=== PATIENT | female | born 1995 | race Hispanic/Latino ===

== ENCOUNTER 2018-01-08 02:59 | Emergency (ER) | payer OTHER ==
[2018-01-08 03:03] VITALS: BMI 21.2
--- NOTE | 2018-01-08 03:50 | ED PDOC ---
Arrival/HPI - General Chief Complaint: Abdominal Pain Time Seen by Provider: 01/08/18 03:18 Historian: Patient - History of Present Illness Narrative History of Present Illness (Text): 01/08/18 03:44 A 22 year old female, with no significant past medical history, presents to the emergency department with complaint of 10 day duration sharp, left-sided, abdominal pain, nausea, and vomiting. She states that the pain woke her from her sleep. Patient reports that she has been having loose stools. She denies any drug use and states that she occasionally drinks alcohol. The patient denies fevers, chills, headache, dizziness, chest pain, shortness of breath, dyspnea on exertion, cough, back pain, neck pain, urinary changes, hematuria, hematemesis, hematochezia, or any other complaint. PMD: Dr. Yang Time/Duration: Other (10 days) Symptom Onset: Sudden Symptom Course: Unchanged Activities at Onset: Rest, Light Context: Home Past Medical History - Provider Review Nursing Documentation Reviewed: Yes - Infectious Disease Hx of Infectious Diseases: None - Cardiac Hx Cardiac Disorders: No - Pulmonary Hx Respiratory Disorders: No - Neurological Hx Neurological Disorder: No - HEENT Hx HEENT Disorder: No - Renal Hx Renal Disorder: No - Endocrine/Metabolic Hx Endocrine Disorders: No - Hematological/Oncological Hx Blood Disorders: No - Integumentary Hx Dermatological Disorder: No - Musculoskeletal/Rheumatological Hx Musculoskeletal Disorders: No - Gastrointestinal Hx Gastrointestinal Disorders: Yes Other/Comment: "Bladder Problems" - Psychiatric Hx Substance Use: No - Surgical History Other/Comment: Bladder Surgery - Anesthesia Hx Anesthesia: Yes Family/Social History - Physician Review Nursing Documentation Reviewed: Yes Family/Social History: No Known Family HX Smoking Status: Never Smoked Hx Alcohol Use: Yes Frequency of alcohol use: Socially Hx Substance Use: No Allergies/Home Meds Allergies/Adverse Reactions: Allergies No Known Allergies Allergy (Verified 01/08/18 03:03) Review of Systems - Physician Review All systems were reviewed & negative as marked: Yes - Review of Systems Constitutional: absent: Fevers Respiratory: absent: SOB, Cough Cardiovascular: absent: Chest Pain, FRENCH Gastrointestinal: Abdominal Pain (Left- sided abdominal pain), Stool Changes ( Loose stools), Nausea, Vomiting. absent: Hematochezia, Hematemesis Genitourinary Female: absent: Hematuria, Urine Output Changes Musculoskeletal: absent: Back Pain, Neck Pain Neurological: absent: Headache, Dizziness Physical Exam - Physical Exam Narrative Physical Exam (Text): 01/08/18 03:50 Gen: VS reviewed, alert, well developed, well nourished, nontoxic, mild distress. ENT: Normal pharynx. Eye: EOMI, PERRL. Neck: No JVD, supple, no adenopathy. CV: Regular rate, regular rhythm, no rubs, no murmur, no gallops, S1, S2, pulses equal and strong. Pulm: No distress, clear to auscultation, no wheeze, no rhonchi, breath sounds equal, no rales. Abd: Soft, nontender, no guarding, no rebound, no rigidity, normal bowel sounds. Ext: No edema. Skin: Good color, no rash, no cyanosis. Psych: Responds appropriately to questions, normal affect. Neuro: Oriented x 3, CN2-12 intact grossly, motor intact, sensation intact. Vital Signs Reviewed: Yes Vital Signs Temp Pulse Resp BP Pulse Ox 01/08/18 08:49 98.1 F 71 19 99 01/08/18 08:42 98.1 F 70 18 119/78 99 01/08/18 06:28 62 18 115/58 L 99 01/08/18 03:03 98.0 F 88 18 120/81 98 Temperature: Afebrile Blood Pressure: Normal Pulse: Regular Respiratory Rate: Normal Appearance: Positive for: Well-Appearing, Non-Toxic, Comfortable Pain Distress: None Mental Status: Positive for: Alert and Oriented X 3 Medical Decision Making ED Course and Treatment: 01/08/18 03:51 Impression: A 22 year old female presents to the emergency department with a complaint of left- sided abdominal pain, nausea, vomiting, and loose stools. Plan: -- Abdomen/Pelvis CT -- Labs -- Urine Culture -- Reassess and disposition Progress Notes: 01/09/18 01:40 case was endorsed to dr. meza, pending Ct result and final disposition. - Lab Interpretations Lab Results: 01/08/18 04:18 01/08/18 04:18 Lab Results 01/08/18 04:18: Sodium 141, Potassium 4.0, Chloride 104, Carbon Dioxide 27, Anion Gap 14, BUN 11, Creatinine 0.8, Est GFR ( Amer) > 60, Est GFR (Non- Af Amer) > 60, Random Glucose 93, Calcium 9.5, Total Bilirubin 0.4, AST 31, ALT 19, Alkaline Phosphatase 54, Total Protein 7.3, Albumin 4.3, Globulin 3.0, Albumin/Globulin Ratio 1.4 01/08/18 04:18: WBC 6.1, RBC 4.54, Hgb 11.8 L, Hct 36.3, MCV 80.0, MCH 26.0, MCHC 32.5, RDW 14.6 H, Plt Count 337, MPV 10.2, Gran % 49.3 L, Lymph % (Auto) 42.9 H, [place] % (Auto) 6.5 H, Eos % (Auto) 0.8 L, Baso % (Auto) 0.5, Gran # 3.01 , Lymph # (Auto) 2.6, [place] # (Auto) 0.4, Eos # (Auto) 0.1, Baso # (Auto) 0.03 01/08/18 03:20: Urine Color Yellow, Urine Appearance Clear, Urine pH 6.5, Ur Specific [place] 1.020, Urine Protein Negative, Urine Glucose (UA) Negative, Urine Ketones Negative, Urine Blood Negative, Urine Nitrate Negative, Urine Bilirubin Negative, Urine Urobilinogen 0.2, Ur Leukocyte Esterase Trace H, Urine RBC 0 - 2, Urine WBC 2 - 5, Ur Epithelial Cells 1 - 3, Urine Bacteria Small I have reviewed the lab results: Yes - RAD Interpretation Radiology Orders: 01/08/18 04:09 ABDOMEN & PELVIS [ABD PELVIS PO & IV CONTRAST] [CT] Stat - Scribe Statement The provider has reviewed the documentation as recorded by the Scribe Courtney Yoo Provider Scribe Attestation: All medical record entries made by the Scribe were at my direction and personally dictated by me. I have reviewed the chart and agree that the record accurately reflects my personal performance of the history, physical exam, medical decision making, and the department course for this patient. I have also personally directed, reviewed, and agree with the discharge instructions and disposition. Disposition/Present on Arrival - Present on Arrival Any Indicators Present on Arrival: No History of DVT/PE: No History of Uncontrolled Diabetes: No Urinary Catheter: No History of Decub. Ulcer: No History Surgical Site Infection Following: None - Disposition Have Diagnosis and Disposition been Completed?: Yes Diagnosis: Abdominal pain Disposition: HOME/ ROUTINE Disposition Time: 01:40 Condition: STABLE Discharge Instructions (ExitCare): Acute Abdomen (Belly Pain), Adult (DC) Print Language: UKRAINIAN Additional Instructions: Make sure to see your doctor in 1-2 days DRINK PLENTY OF FLUIDS take your medications as prescribed RETURN TO ED IF worse pain, cant breath, persistent vomiting, high fever >101- 102 for hours, altered behavior, slurr speech, facial changes, focal weakness ( arm/leg or both), unable to urinate, heavy/persistent bleeding, passing out, chest pain, or other medical emergencies Prescriptions: Ibuprofen [Motrin] 600 mg PO QID PRN #30 tab PRN Reason: Pain, Mild (1-3) Referrals: [facility] [Outside] - Follow up with primary [facility] [Outside] - Follow up with primary [facility] [Outside] - Follow up with primary Leonel Yang MD [Primary Care Provider] - Follow up with primary Forms: [employer] Jeanie (Macanese), WORK NOTE
[2018-01-08 04:22] LABS: PH,URINE 6.5 (4.7-8.0); URINE BILIRUBIN NEGATIVE (NEGATIVE); URINE BLOOD NEGATIVE (NEGATIVE); URINE GLUCOSE (UA) NEGATIVE (NEGATIVE); URINE LEUKOCYTE ESTERASE TRACE Leu/uL (NEGATIVE); URINE PROTEIN NEGATIVE mg/dL (<30 mg/dL); URINE UROBILINOGEN 0.2 E.U./dL (<1 E.U./dL)
[2018-01-08 04:30] LABS: URINE APPEARANCE CLEAR (CLEAR); URINE COLOR YELLOW (YELLOW)
[2018-01-08 04:36] LABS: URINE BACTERIA SMALL (NEG); URINE RBC 0 - 2 /hpf (0-2)
[2018-01-08] MEDS ORDERED: Iohexol 240 (50 ml) ONE (04:38)
[2018-01-08 04:52] LABS: BASO # 0.03 K/mm3 (0.0-2.0); BASO % 0.5 % (0.0-3.0); EOS # 0.1 (0.0-0.7); EOS % 0.8 % (1.5-5.0); GRAN # 3.01 (1.4-6.5); GRAN % 49.3 % (50.0-68.0); HEMOGLOBIN 11.8 g/dL (12.0-16.0); LYMPH # 2.6 (1.2-3.4); LYMPH % 42.9 % (22.0-35.0); MEAN CORPUSCULAR HGB CONC 32.5 g/dl (31.0-37.0); MEAN PLATELET VOLUME 10.2 fl (7.0-11.0); MONO # 0.4 (0.1-0.6); MONO % 6.5 % (1.0-6.0); RBC 4.54 10^6/uL (3.5-6.1); RED CELL DISTRIBUTION WIDTH 14.6 % (11.5-14.5); WHITE BLOOD COUNT 6.1 10^3/ul (4.5-11.0)
[2018-01-08 05:18] LABS: ALB/GLOB RATIO 1.4 (1.1-1.8); ALBUMIN 4.3 g/dL (3.0-4.8); ALT/SGPT 19 U/L (7-56); AST/SGOT 31 U/L (14-36); BLOOD UREA NITROGEN 11 mg/dL (7-21); CALCIUM 9.5 mg/dL (8.4-10.5); GFR AFRICAN-AMERICAN > 60; GFR NON-AFRICAN AMERICAN > 60
[2018-01-08 06:28] VITALS: O2SAT 99
[2018-01-08] MEDS ORDERED: Iohexol 350 MG/100 ML VIAL ONE (06:40)
--- NOTE | 2018-01-08 07:37 | ED PDOC ---
Physical Exam - Physical Exam Narrative Physical Exam (Text): 01/08/18 General: alert/awake, GCS = 15, oriented x 3, resting in bed, comfortable, cooperative, interactive; NAD; pt was resting/sleeping in her exam bed prior to re-eval Head: NC/AT EYE: PERRLA, EOMI, sclera anicteric, no nystagmus, no photophobia Facial: WNL Oral: uvula/tongue are midline, no exudate/lesions, no drooling/stridor, no dysphonia; intact dentitions NECK: intact ROM, no midline tenderness, no nuchal rigidity, no meningeal signs ; no step off Chest: CTA b/l, no w/r/r; no tachypenia, no accessory muscle use noted Chest Wall: no crepitus, no lesions, no gross deformities, no focal tenderness Cardiac: +S1, +S2, no m/r/r, no tachycardia Abdominal: +BS, soft/nd/nt, well nourished patient; no masses/rebound/guarding/ rigidity; no betancourt's sign, no mcburney's point tenderness Extremities: intact ROM, strength 5/5 grossly intact in all limbs, neurovasc intact b/l; + ambulatory; reflex +2/2 BACK: no step off, no midline tenderness, NO crepitus, no gross deformities noted; Intact ROM SKIN: cap refill < 1 sec, no ulcerations, no petechiae, no rashes NEURO: CNII-XII WNL, no facial asymmetries, no slurr speech, oriented x 3 NIH stroke scale ~ 0 Psych: normal insight, normal affect; follows command with ease Vital Signs Reviewed: Yes Vital Signs Temp Pulse Resp BP Pulse Ox 01/08/18 08:42 98.1 F 70 18 119/78 99 01/08/18 06:28 62 18 115/58 L 99 01/08/18 03:03 98.0 F 88 18 120/81 98 Temperature: Afebrile Blood Pressure: Normal Pulse: Regular Respiratory Rate: Normal Appearance: Positive for: Well-Appearing, Non-Toxic, Comfortable Pain Distress: None Mental Status: Positive for: Alert and Oriented X 3 - Systems Exam Head: Present: Atraumatic, Normocephalic Medical Decision Making ED Course and Treatment: 01/08/18 07:00 Case endorsed to me by Dr. Avila. Patient is a 22 year old female, with no significant past medical history, with complaint of 10 day sharp, left-sided, abdominal pain, associated with nausea, vomiting, and loose stools. Currently pending abdominal CT scan. pt can be dispositioned accordingly. 01/08/18 08:30 On reevaluation, patient has improved, little to no abd pain, and is in no acute distress. I have discussed the results and plan with the patient, who expresses understanding. Patient given the opportunity to ask question, all questions were answered and there is agreement with the plan to discharge the patient home. Patient is stable for discharge. Patient was instructed to follow up as directed. Re-evaluation Time: 08:30 Reassessment Condition: Improved - Lab Interpretations Lab Results: 01/08/18 04:18 01/08/18 04:18 Lab Results 01/08/18 04:18: Sodium 141, Potassium 4.0, Chloride 104, Carbon Dioxide 27, Anion Gap 14, BUN 11, Creatinine 0.8, Est GFR ( Amer) > 60, Est GFR (Non- Af Amer) > 60, Random Glucose 93, Calcium 9.5, Total Bilirubin 0.4, AST 31, ALT 19, Alkaline Phosphatase 54, Total Protein 7.3, Albumin 4.3, Globulin 3.0, Albumin/Globulin Ratio 1.4 01/08/18 04:18: WBC 6.1, RBC 4.54, Hgb 11.8 L, Hct 36.3, MCV 80.0, MCH 26.0, MCHC 32.5, RDW 14.6 H, Plt Count 337, MPV 10.2, Gran % 49.3 L, Lymph % (Auto) 42.9 H, [place] % (Auto) 6.5 H, Eos % (Auto) 0.8 L, Baso % (Auto) 0.5, Gran # 3.01 , Lymph # (Auto) 2.6, [place] # (Auto) 0.4, Eos # (Auto) 0.1, Baso # (Auto) 0.03 01/08/18 03:20: Urine Color Yellow, Urine Appearance Clear, Urine pH 6.5, Ur Specific [place] 1.020, Urine Protein Negative, Urine Glucose (UA) Negative, Urine Ketones Negative, Urine Blood Negative, Urine Nitrate Negative, Urine Bilirubin Negative, Urine Urobilinogen 0.2, Ur Leukocyte Esterase Trace H, Urine RBC 0 - 2, Urine WBC 2 - 5, Ur Epithelial Cells 1 - 3, Urine Bacteria Small I have reviewed the lab results: Yes Interpretation: All labs normal - RAD Interpretation Narrative RAD Interpretations (Text): 01/08/18 08:26 CT Abdomen and Pelvis With Intravenous Contrast FINDINGS: Lung bases: Unremarkable. No mass. No consolidation. ABDOMEN: Liver: Unremarkable. No mass. Gallbladder and bile ducts: Unremarkable. No calcified stones. No ductal dilation. Pancreas: Unremarkable. No mass. No ductal dilation. Spleen: Unremarkable. No splenomegaly. Adrenals: Unremarkable. No mass. Kidneys and ureters: Unremarkable. No solid mass. No hydronephrosis. Stomach and bowel: Unremarkable. No obstruction. No mucosal thickening. PELVIS: Appendix: No findings to suggest acute appendicitis. Bladder: Unremarkable. No mass. Reproductive: Unremarkable as visualized. ABDOMEN and PELVIS: Intraperitoneal space: Trace free fluid is present which is nonspecific but may reflect physiologic fluid or rupture of an ovarian cyst or follicle. No free air. Bones/joints: No acute fracture. No dislocation. Soft tissues: Unremarkable. Vasculature: Unremarkable. No abdominal aortic aneurysm. Lymph nodes: Nonspecific small mesenteric lymph nodes are noted. IMPRESSION: Trace free pelvic fluid. Radiology Orders: 01/08/18 04:09 ABDOMEN & PELVIS [ABD PELVIS PO & IV CONTRAST] [CT] Stat Finishing Supervisor: Radiologist Disposition/Present on Arrival - Present on Arrival Any Indicators Present on Arrival: No History of DVT/PE: No History of Uncontrolled Diabetes: No Urinary Catheter: No History of Decub. Ulcer: No History Surgical Site Infection Following: None - Disposition Have Diagnosis and Disposition been Completed?: Yes Diagnosis: Abdominal pain Disposition: HOME/ ROUTINE Disposition Time: 08:35 Patient Plan: Discharge Patient Problems: Current Active Problems Problem Status Onset Abdominal pain Acute Condition: STABLE Discharge Instructions (ExitCare): Acute Abdomen (Belly Pain), Adult (DC) Print Language: BENGALI Additional Instructions: Make sure to see your doctor in 1-2 days DRINK PLENTY OF FLUIDS take your medications as prescribed RETURN TO ED IF worse pain, cant breath, persistent vomiting, high fever >101- 102 for hours, altered behavior, slurr speech, facial changes, focal weakness ( arm/leg or both), unable to urinate, heavy/persistent bleeding, passing out, chest pain, or other medical emergencies Prescriptions: Ibuprofen [Motrin] 600 mg PO QID PRN #30 tab PRN Reason: Pain, Mild (1-3) Referrals: [facility] [Outside] - Follow up with primary [facility] [Outside] - Follow up with primary [facility] [Outside] - Follow up with primary Leonel Yang MD [Primary Care Provider] - Follow up with primary Forms: [employer] (Mongolian), WORK NOTE
[2018-01-08 08:43] VITALS: BP 119/78; TEMP 98.1
[2018-01-08 08:50] VITALS: PULSE 71; RESP 19
--- NOTE | 2018-01-08 09:09 | CT ---
Date of service: 01/08/2018 PROCEDURE: CT Abdomen and Pelvis with contrast HISTORY: pain, vomiting COMPARISON: None. TECHNIQUE: Contrast dose: Radiation dose: Total exam DLP = mGy-cm. This CT exam was performed using one or more of the following dose reduction techniques: Automated exposure control, adjustment of the mA and/or kV according to patient size, and/or use of iterative reconstruction technique. FINDINGS: LOWER THORAX: Unremarkable. LIVER: Unremarkable. No gross lesion or ductal dilatation. GALLBLADDER AND BILE DUCTS: Unremarkable. PANCREAS: Unremarkable. No gross lesion or ductal dilatation. SPLEEN: Unremarkable. ADRENALS: Unremarkable. No mass. KIDNEYS AND URETERS: Unremarkable. No hydronephrosis. No solid mass. VASCULATURE: Unremarkable. No aortic aneurysm. BOWEL: Unremarkable. No obstruction. No gross mural thickening. APPENDIX: Normal appendix. PERITONEUM: Unremarkable. No free fluid. No free air. LYMPH NODES: Unremarkable. No enlarged lymph nodes. BLADDER: Unremarkable. REPRODUCTIVE: Unremarkable. BONES: No acute fracture. OTHER FINDINGS: None. IMPRESSION: Unremarkable contrast enhanced CT of the abdomen and pelvis.
== END 2018-01-08 08:50 | disposition home or self-care (01) ==
LOC: ED 02:59
DX: R10.9 Unspecified abdominal pain (principal)
CPT/HCPCS: 74177; 80053; 81001; 85025; 87086; 99284; Q9966; Q9967